=== PATIENT | female | born 1950 | race African-American/Black ===

== ENCOUNTER 2020-11-19 06:52 | Emergency (ER) | payer BC, MEDICAID ==
[~2020-11-19] VITALS: Ht 160 cm; Wt 63.5 kg
[~2020-11-19 06:52] MED LIST: ALBUTEROL SULF8.5 GM INH; ASPIR-LOW81 MG PO; ATENOLOL25 MG ORAL; AUGMENTIN 875-1 EAC1 ORAL; AUGMENTIN TAB875 MG ORAL; CLONIDINE0.1 MG PO; HYDROCHLOROTHIA50 MG PO; MORPHINE IR15 MG PO; MORPHINE PO; NORCO 10-325 T1 EACH PO; NORCO 10/3251 EA ORAL; NORCO1 E1 ORAL; PHENOBARBITAL30 MG PO; POTASSIUM CHLO10 MEQ ORAL; POTASSIUM PO; POTASSIUM99 M3 PO; PROCARDIA XL90 MG PO; SIMVASTATIN20 MG PO; SOMA350 MG PO; TENORMIN25 MG PO
--- NOTE | 2020-11-19 07:22 | Emergency Room Report ---
History of Present Illness General Chief Complaint: Abdominal Pain Source: Patient Present Illness HPI Disclaimer: Please note that this report is being documented using [email or web address] technology. This can lead to erroneous entry secondary to incorrect interpretation by the dictating instrument. HPI: 70-year-old female history of diverticulitis presents for evaluation of abdominal pain. Patient states she has been a near constant abdominal pain for the past 2 months being diagnosed with diverticulitis and finishing her course of antibiotics at [facility]. Also reports recent EGD, colonoscopy and stool test all of which have reportedly returned unremarkable. Reports 2 days of left lower quadrant pain that is now somewhat diffuse. Denies vomiting, fever or diarrhea. Reports inability to eat due to pain and nausea. Denies prior history of abdominal surgery. She is now living in [place] with her daughter. She has been taking Bentyl, omeprazole as prescribed. PMH: Diverticulitis, gastritis, breast cancer PSH: Reviewed Allergies: Iodine contrast, hydromorphone, Haldol Social Hx: Reviewed Allergies: Coded Allergies: HALOPERIDOL (Unverified Allergy, Severe, 10/09/12) HALOPERIDOL LACTATE (Unverified Allergy, Severe, 10/09/12) HYDROMORPHONE HCL (Unverified Allergy, Severe, 10/09/12) IODINE (Unverified Allergy, Severe, 10/09/12) COVID-19 Screening Contact w/high risk pt: No Experienced COVID-19 symptoms?: No COVID-19 Testing performed SCANNING MANAGER: No COVID-19 Screening: Negative COVID-19 COVID-19 Testing Source: [place] Patient History Now: No Nursing Documentation-PMH Hx Cardiac Problems: Yes Hx Hypertension: Yes Hx Asthma: Yes Hx Cancer: Yes Hx Gastrointestinal Problems: Yes - diverticulitis Hx Neurological Problems: Yes Hx Dizziness: Yes Hx Syncope: Yes Hx Headaches: Yes Hx Weakness: Yes Hx Fatigue: Yes Review of Systems All Other Systems: negative except mentioned in HPI Physical Exam Vital Signs Date Time Temp Pulse Resp B/P (MAP) Pulse Ox O2 Delivery O2 Flow Rate FiO2 11/19/20 06:59 98.8 85 20 198/101 (133) 98 Room Air General: Awake and alert, appears uncomfortable HEENT: NC/AT. EOMI. Cardiovascular: RRR. S1 and S2 normal. No murmur appreciated Resp: Normal work of breathing. No cough, wheezing or crackles appreciated Abdomen: Abdomen is soft, nondistended. Tender palpation of the left lower quadrant with voluntary guarding. No rigidity. No rebound in the right lower quadrant. Minimal tenderness in the upper quadrants. Skin: Intact. No abrasions, laceration or rash over the exposed skin MSK: Normal tone and bulk. Moving all extremities. No obvious deformity. Neuro: Awake and alert. Mentating appropriately. Medical Decision Making Diagnostic Impression: Primary Impression: Colitis ER Course 70-year-old female presenting for evaluation of abdominal pain. Differential includes not limited to gastritis, gastroenteritis, pancreatitis, cholecystitis, hernia, mesenteric ischemia, appendicitis, diverticulitis abdominal abscess, U TI, pyelonephritis, nephrolithiasis among others. Labs and CT without contrast was ordered given the patient's reported anaphylactic reaction to contrast dye. Given IV fluids, antiemetics, antacids. CT scan consistent with enterocolitis. Labs returned within normal limits. There was mention of inflammation around the duodenum but no evidence of acute pancreatitis or cholecystitis or biliary duct obstruction at this time. Patient states his pain has been going on for some time and is more of a chronic issue. Patient will be started on Augmentin discharged with GI follow-up. Instructed her to obtain her records from previous provider including the reports of the EGD and colonoscopy which were performed earlier this month. She has an appointment to see her PMD on 11/25 and will obtain those records at this time to set up care here in the [facility]. She has morphine and oxycodone prescribed to her for treatment of chronic pain. She agrees to try antibiotics and return with any new or worsening sym ptoms. Laboratory Tests Test 11/19/20 07:24 White Blood Count 5.2 K/UL (4.8-10.8) Red Blood Count 4.04 M/UL (4.20-5.40) L Hemoglobin 12.5 G/DL (12.0-16.0) Hematocrit 39.4 % (37.0-47.0) Mean Corpuscular Volume 98 FL (80-99) Mean Corpuscular Hemoglobin 31.0 PG (27.0-31.0) Mean Corpuscular Hemoglobin Concent 31.7 G/DL (32.0-36.0) L Red Cell Distribution Width 12.6 % (11.6-14.8) Platelet Count 207 K/UL (150-450) Mean Platelet Volume 8.6 FL (6.5-10.1) Neutrophils (%) (Auto) 50.3 % (45.0-75.0) Lymphocytes (%) (Auto) 37.5 % (20.0-45.0) Monocytes (%) (Auto) 7.6 % (1.0-10.0) Eosinophils (%) (Auto) 2.0 % (0.0-3.0) Basophils (%) (Auto) 2.6 % (0.0-2.0) H Sodium Level 142 MMOL/L (136-145) Potassium Level 3.6 MMOL/L (3.5-5.1) Chloride Level 106 MMOL/L (98-107) Carbon Dioxide Level 28 MMOL/L (21-32) Anion Gap 9 mmol/L (5-15) Blood Urea Nitrogen 13 mg/dL (7-18) Creatinine 0.9 MG/DL (0.55-1.30) Estimated Glomerular Filtration Rate > 60 mL/min (>60) Glucose Level 83 MG/DL (74-106) Calcium Level 10.0 MG/DL (8.5-10.1) Total Bilirubin 0.3 MG/DL (0.2-1.0) Aspartate Amino Transferase (AST) 18 U/L (15-37) Alanine Aminotransferase (ALT) 15 U/L (12-78) Alkaline Phosphatase 101 U/L (46-116) Total Protein 7.8 G/DL (6.4-8.2) Albumin 3.8 G/DL (3.4-5.0) Globulin 4.0 g/dL Albumin/Globulin Ratio 0.9 (1.0-2.7) L Lipase 116 U/L (73-393) CT/MRI/US Diagnostic Results CT/MRI/US Diagnostic Results : Impression IMPRESSION: 1. There is mild mural thickening inflammatory change about the distal duodenum and proximal small bowel. There is also mural thickening of the descending colon, sigmoid: Rectum. Findings are consistent with enterocolitis. 2. There is mild inflammatory change identified about the pancreatic head and uncinate process which may be secondary to duodenitis. However, Correlation with serum amylase and lipase recommended to exclude mild acute pancreatitis. Dictated By: Nelson Abreu M.D. Electronically Signed By:Nelson Abreu M.D. Signed Date/Time 11/19/20 0824 Last Vital Signs Date Time Temp Pulse Resp B/P (MAP) Pulse Ox O2 Delivery O2 Flow Rate FiO2 11/19/20 06:59 98.8 85 20 198/101 (133) 98 Room Air Disposition: HOME, SELF-CARE Condition: Stable Scripts Amoxicillin/Potassium Clav 875-125* (AUGMENTIN 875-125 TABLET*) 1 Each Tablet 1 TAB ORAL TWICE A DAY for 10 Days, #20 TAB Prov: Christo Smallwood MD 11/19/20 Christo Smallwood MD Nov 19, 2020 07:22
--- NOTE | 2020-11-19 07:25 | NUR ---
ED Nurse Note: Recieved pt walk in from home with c/o severe abdominal pain since may, pt is crying and assisted in with wheelchair, pt states has hx of diverticulitis, pt is crying and thrashing at staff, pt is awake, alert and oriented x 4, ambulatory, IV line placed and labs drawn, MD immediately at bedside, will medicate as ordered and continue to closely montior.
--- NOTE | 2020-11-19 07:27 | NUR ---
HAND-OFF: Report given to JENNY Herr.
[2020-11-19] MEDS ORDERED: Metoclopramide 10mg/2ml Inj IVP ONE (07:30)
[2020-11-19 07:38] VITALS: BP 187/99
[2020-11-19 08:00] LABS: BASOPHILS % (AUTO) 2.6 % (0.0-2.0); HEMATOCRIT 39.4 % (37.0-47.0); HEMOGLOBIN 12.5 G/DL (12.0-16.0); LYMPHOCYTES % (AUTO) 37.5 % (20.0-45.0); MEAN CORPUSCULAR VOLUME 98 FL (80-99); MONOCYTES % (AUTO) 7.6 % (1.0-10.0); NEUTROPHILS % (AUTO) 50.3 % (45.0-75.0); PLATELET COUNT 207 K/UL (150-450); RED BLOOD COUNT 4.04 M/UL (4.20-5.40); RED CELL DISTRIBUTION WIDTH 12.6 % (11.6-14.8); WHITE BLOOD COUNT 5.2 K/UL (4.8-10.8)
[2020-11-19 08:02] LABS: ANION GAP 9 mmol/L (5-15); BLOOD UREA NITROGEN 13 mg/dL (7-18); CARBON DIOXIDE 28 MMOL/L (21-32); CHLORIDE 106 MMOL/L (98-107); CREATININE 0.9 MG/DL (0.55-1.30); POTASSIUM 3.6 MMOL/L (3.5-5.1); SODIUM 142 MMOL/L (136-145)
[2020-11-19 08:07] LABS: ALANINE AMINOTRANSFERASE 15 U/L (12-78); ALBUMIN 3.8 G/DL (3.4-5.0); ALBUMIN/GLOBULIN RATIO 0.9 (1.0-2.7); ALKALINE PHOSPHATASE 101 U/L (46-116); ASPARTATE AMINO TRANSFERASE 18 U/L (15-37); BILIRUBIN,TOTAL 0.3 MG/DL (0.2-1.0)
--- NOTE | 2020-11-19 08:24 | Diagnostic Imaging Report ---
EXAM: CT Abdomen and Pelvis Without Intravenous Contrast CLINICAL HISTORY: ABD PAIN TECHNIQUE: Axial computed tomography images of the abdomen and pelvis without intravenous contrast. CTDI is 5.3 mGy and DLP is 239.3 mGy-cm. One or more of the following dose reduction techniques were used: automated exposure control, adjustment of the mA and/or kV according to patient size, use of iterative reconstruction technique. COMPARISON: No relevant prior studies available. FINDINGS: Lung bases: Unremarkable. No mass. No consolidation. ABDOMEN: Liver: Unremarkable. Gallbladder and bile ducts: Unremarkable. No calcified stones. No ductal dilation. Pancreas: There is mild inflammatory change identified about the pancreatic head and uncinate process which may be secondary to duodenitis. However, Correlation with serum amylase and lipase recommended to exclude mild acute pancreatitis. No ductal dilation. Spleen: Unremarkable. No splenomegaly. Adrenals: Unremarkable. No mass. Kidneys and ureters: Unremarkable. No obstructing stones. No hydronephrosis. Stomach and bowel: There is mild mural thickening inflammatory change about the distal duodenum and proximal small bowel. There is also mural thickening of the descending colon, sigmoid: Rectum. Findings are consistent with enterocolitis. There is moderate sigmoid and descending colon diverticulosis without diverticulitis. No obstruction. PELVIS: Appendix: No findings to suggest acute appendicitis. Bladder: Unremarkable. No stones. Reproductive: Unremarkable as visualized. ABDOMEN and PELVIS: Intraperitoneal space: Unremarkable. No free air. No significant fluid collection. Bones/joints: No acute fracture. No dislocation. Soft tissues: Unremarkable. Vasculature: Unremarkable. No abdominal aortic aneurysm. Lymph nodes: Unremarkable. No enlarged lymph nodes. IMPRESSION: 1. There is mild mural thickening inflammatory change about the distal duodenum and proximal small bowel. There is also mural thickening of the descending colon, sigmoid: Rectum. Findings are consistent with enterocolitis. 2. There is mild inflammatory change identified about the pancreatic head and uncinate process which may be secondary to duodenitis. However, Correlation with serum amylase and lipase recommended to exclude mild acute pancreatitis.
[2020-11-19] MEDS ORDERED: AUGMENTIN 875-1 EAC1 ORAL ×2 (08:42→09:02)
--- NOTE | 2020-11-19 09:00 | NUR ---
ED Nurse Note: ER MD notified that pt unable to provide urine specimen. ER MD verbalized clearance for pt to be discharged.
[2020-11-19 09:10] VITALS: BP 167/88
[2020-11-19 09:20] VITALS: BP 167/88
--- NOTE | 2020-11-19 09:23 | NUR ---
ER DISCHARGE NOTE: Patient is cleared to be discharged per ERMD, pt is aox4, on room air, with stable vital signs. pt was given dc and prescription instructions, pt was able to verbalize understanding, pt id band and iv site removed without complications. pt is able to ambulate with steady gait. pt took all belongings. pt instructed on colitis and verbalized to followup with primary MD.
== END 2020-11-19 09:20 | disposition home or self-care (01) ==
LOC: EMR 07:14
DX: K52.9 Noninfective gastroenteritis and colitis, unspecified (principal); I11.9 Hypertensive heart disease without heart failure; J45.909 Unspecified asthma, uncomplicated; Z85.9 Personal history of malignant neoplasm, unspecified; Z87.19 Personal history of other diseases of the digestive system; Z88.5 Allergy status to narcotic agent; Z88.8 Allergy status to other drugs, medicaments and biological substances; Z79.899 Other long term (current) drug therapy
CPT/HCPCS: 36415; 74176; 80053; 83690; 85025; 96361; 96374; 96375; 99284; J2765; J7030; S0028